=== PATIENT | male | born 1980 | race Caucasian/White ===

== ENCOUNTER 2021-09-11 09:22 | Emergency (ER) | payer OTHER ==
[2021-09-11 10:22] LABS: HEMOGLOBIN 15.8 gm/dl (14.0-17.5); RED BLOOD COUNT 5.29 M/UL (4.20-5.50); WHITE BLOOD COUNT 6.7 K/UL (4.5-11.0)
[2021-09-11 10:55] LABS: BUN/CREATININE RATIO 12 (0-10)
== END 2021-09-11 13:57 | disposition home or self-care (01) ==
LOC: ER1 09:22
PROVIDERS: Family Medicine
DX: R10.10 Upper abdominal pain, unspecified (principal)
CPT/HCPCS: 80053; 81001; 82550; 82553; 83605; 83690; 84484; 85025; 99284; Q9967

== ENCOUNTER → 2021-10-10 | Outpatient (CLI) | payer OTHER | LOC: NM 09:00 | DX: R10.11 Right upper quadrant pain (principal) | CPT/HCPCS: 78226; A9537 ==